=== PATIENT | male | born 1995 | race Caucasian/White ===

== ENCOUNTER 2016-10-24 02:44 | Emergency (ER) | payer BC ==
--- NOTE | 2016-10-24 06:34 | ED ---
Shanda Cowart Rebecca, scribed for Daphne Vann MD on 10/24/16 at 0308 . Substance Abuse/Use - HPI Summary HPI Summary: Pt is a 21 y/o M BIBA who p/w mild acute EtOH intoxication. Pt reports one binge use tonight of an estimated 6 drinks. Sx aggravated and alleviated by nothing. C/o N/V. Denies any pain or having any other complaints. - History Of Current Complaint Chief Complaint: EDSubstanceAbuse Stated Complaint: ALCOHOL CONSUMPTION Time Seen by Provider: 10/24/16 02:45 Hx Obtained From: Patient Ingestion History: Type/Name Of Drug - EtOH, Amount Ingested - approximately 6 drinks Overdose Characteristics: Oral Timing Of Abuse: Binge Use Severity Initially: Mild Severity Currently: Mild Aggravating Factor(s): Nothing Alleviating Factor(s): Nothing Associated Signs And Symptoms: Nausea, Vomiting - Allergies/Home Medications Allergies/Adverse Reactions: Allergies Allergy/AdvReac Type Severity Reaction Status Date / Time Latex Allergy Unknown Verified 10/24/16 02:52 Reaction Details PMH/Surg Hx/FS Hx/Imm Hx Previously Healthy: Yes Endocrine/Hematology History: Denies: Hx Diabetes Cardiovascular History: Denies: Hx Hypertension Infectious Disease History: No Infectious Disease History: Denies: Traveled Outside the [place] in Last 30 Days - Family History Known Family History: Negative: Hypertension - Social History Occupation: Student Alcohol Use: Occasionally Alcohol Amount: ETOH use this date Substance Use Type: Reports: None Smoking Status (MU): Never Smoked Tobacco Review of Systems Positive: Vomiting, Nausea Negative: Arthralgia All Other Systems Reviewed And Are Negative: Yes Physical Exam - Summary Physical Exam Summary: General: No pain distress Skin: Warm, Skin Color Reflects Adequate Perfusion, Dry Eyes: CHRISTINE ENT: TMs normal Respiratory: CTA, breath sounds present, no rhonchi, no wheezes, no rales Cardiovascular: RRR, no murmur, no rub, no gallop Musculoskeletal: TASIA, No edema Neuro: A&Ox3 Triage Information Reviewed: Yes Vital Signs On Initial Exam: Initial Vitals Temp Pulse Resp BP Pulse Ox 97.8 F 97 16 106/69 100 10/24/16 02:45 10/24/16 02:45 10/24/16 02:45 10/24/16 02:45 10/24/16 02:45 Vital Signs Reviewed: Yes Diagnostics - Vital Signs Vital Signs Temp Pulse Resp BP Pulse Ox 10/24/16 02:45 97.8 F 97 16 106/69 100 - Laboratory Lab Statement: Any lab studies that have been ordered have been reviewed, and results considered in the medical decision making process. Course/Dx - Course Course Of Treatment: pt will be sent home once awake and gait tested - Diagnoses Provider Diagnoses: Acute alcohol intoxication Discharge - Discharge Plan Condition: Stable Disposition: HOME Patient Education Materials: Alcohol Intoxication (ED) Referrals: Lisha Yates MD [Primary Care Provider] - 3 Days The documentation as recorded by the Shanda meza Rebecca accurately reflects the service I personally performed and the decisions made by , Daphne Vann MD.
[2016-10-24 08:31] VITALS: BP 118/72
== END 2016-10-24 08:00 | disposition home or self-care (01) ==
LOC: ED 02:44
DX: F10.129 Alcohol abuse with intoxication, unspecified (principal); R11.2 Nausea with vomiting, unspecified
CPT/HCPCS: 99282